=== PATIENT | female | born 1985 | race Caucasian/White ===

== ENCOUNTER → 2018-07-01 | Outpatient (CLI) | payer OTHER | END | disposition home or self-care (01) | LOC: NUC 10:59 | PROVIDERS: ATTEND Surgery Surgical Oncology | DX: R10.9 Unspecified abdominal pain (principal) | CPT/HCPCS: 78227 ==

== ENCOUNTER 2018-07-26 08:25 | Day surgery (SDC) | payer OTHER ==
[2018-07-25 18:00] VITALS: BMI 29.5
[2018-07-26] VITALS (12 sets, daily range): BP systolic 113–156; BP diastolic 63–93; PULSE 66–88; RESP 16–29; Ht 152.4 cm; Wt 83.2 kg
[~2018-07-26] VITALS: Ht 152.4 cm; Wt 83.2 kg
[~2018-07-26 08:25] MED LIST: CEFAZOLIN 2 GM/50 ML (PMX) 50 ML IVPB SCH; SOD CHLORIDE 0.9% 1,000 ML IV ONE
[2018-07-26] MEDS ORDERED: SOD CHLORIDE 0.9% 1,000 ML IV SCH (10:30)
--- NOTE | 2018-07-26 10:48 | PREAC ---
Date/Time of Note Date/Time of Note DATE: 07/26/18 TIME: 10:47 Anesthesia Eval and Record Evaluation Time Pre-Procedure Interview DATE: 07/26/18 TIME: 10:47 Age 33 Sex female NPO: 8 hrs Preoperative diagnosis cholelithiasis Planned procedure lap mane Past Medical History Past Medical History: Includes GI: Obesity Surgery & Anesthesia Issues No known issue Meds Anticoagulation: No Beta Rubia within 24 hr: No Reason Beta Rubia not given: Pt. not on B-Rubia No Active Prescriptions or Reported Meds Current Medications Cefazolin Sodium/ Dextrose 50 ml @ 100 mls/hr PRE-OP IVPB ; Start 07/26/18 at 06:00; Stop 07/26/18 at 15:00 Sodium Chloride 1,000 ml @ 75 mls/hr [id number] ONCE IV Last administered on 07/26/18at 10:19; Admin Dose 75 MLS/HR; Start 07/26/18 at 06:00; Stop 07/26/18 at 19:19 Meds reviewed: Yes Allergies Coded Allergies: No Known Allergy (Unverified , 07/26/18) Allergies Reviewed: Yes Labs/Studies Labs Reviewed: Reviewed by anesthesiologist Result Diagram: 07/26/18 1005 Laboratory Tests 07/26/18 10:05 test: Negative Studies: ECG (n/a), CXR (n/a) Pre-procedure Exam Last vitals Vital Signs Date Temp Pulse Resp B/P (MAP) Pulse Ox O2 O2 Flow FiO2 Time Delivery Rate 07/26/18 98.4 80 16 126/81 96 Room Air 10:01 (96) Airway: Adequate mouth opening Mallampati: Mallampati I Teeth: Normal Lung: Normal Heart: Normal ASA Physical Status ASA physical status: 1 Emergency: None Planned Anesthetic General/MAC: ETT Nerve block: TAP (bilateral) Planned Pain Management Single shot nerve block, Parenteral pain med Pre-operative Attestations Prior to commencing anesthesia and surgery, the patient was re-evaluated, there was verification of: *The patient's identity *The results of appropriate recent lab work and preoperative vital signs *The above evaluation not changing prior to induction *Anesthetic plan, risk benefits, alternative and complications discussed with patient/family; questions answered; patient/family understands, accepts and wishes to proceed. EARNESTINE MATHEW MD Jul 26, 2018 10:48
[2018-07-26] MEDS ORDERED: ROPIVACAINE 0.5 % 30 ML VIAL ONE (10:57)
[2018-07-26] MEDS ORDERED: OXYCODONE/ACETAMINOPHEN (5/325) TAB PO PRN (11:00)
[2018-07-26] MEDS ORDERED: DIPHENHYDRAMINE 50 MG INJ IV PRN (11:00)
[2018-07-26] MEDS ORDERED: KETOROLAC 30 MG INJ IV PRN (11:00)
[2018-07-26] MEDS ORDERED: ONDANSETRON 4 MG INJ IV PRN (11:00)
[2018-07-26] MEDS ORDERED: FENTAnyl 50 MCG/ML VIAL IV PRN ×3 (11:00)
[2018-07-26] MEDS ORDERED: MEPERIDINE 25 MG INJ IV PRN (11:00)
[2018-07-26] MEDS ORDERED: HYDROmorphONE 1 MG/5 ML IV SYRINGE IV PRN ×3 (11:00)
[2018-07-26] MEDS ORDERED: KETOROLAC 30 MG INJ ONE (11:16)
[2018-07-26] MEDS ORDERED: PROPOFOL 20 ML ONE (11:16)
[2018-07-26] MEDS ORDERED: GLYCOPYRROLATE 0.4 MG INJ ONE (11:16)
[2018-07-26] MEDS ORDERED: METOCLOPRAMIDE 10 MG INJ ONE (11:16)
[2018-07-26] MEDS ORDERED: ROCURONIUM 50 MG INJ ONE (11:16)
[2018-07-26] MEDS ORDERED: CEFAZOLIN 1 GM INJ ONE (11:16)
[2018-07-26] MEDS ORDERED: NEOSTIGMINE 3 MG/3 ML SYRINGE ONE (11:16)
[2018-07-26] MEDS ORDERED: ONDANSETRON 4 MG INJ ONE (11:16)
--- NOTE | 2018-07-26 11:57 | OPR ---
Date/Time of Note Date/Time of Note DATE: 07/26/18 TIME: 11:51 Operative Report Procedure Date: Jul 26, 2018 Preoperative Diagnosis symptomatic gallstones Postoperative Diagnosis same Operation/Procedure Performed laparoscopic cholecystectomy Surgeon see signature line Learning And Development Administrator none Anesthesia Type: general Estimated Blood Loss: 0 - 10 ml's Transfusion none Specimen gallbladder Grafts/Implants none Complications none Pt Condition Post Procedure: stable Indications This is a 33-year-old female with symptomatic gallstones. She required surgical excision. Risks alternatives benefits and percent were discussed the patient. Patient expressed understanding and consents to the operation. Procedure Description Patient is here to the OR and prepped and draped in usual sterile fashion. Surgical time was performed. IV antibiotics given. Infraumbilical transverse incision was made with a 15 blade. Dissection with cautery skin onto the fascia. The fascia was grasped with Amol's and divided with curved Webb scissors. 0 Vicryl use this was placed into the fascia. Hopper trocar was introduced. Pneumoperitoneum is established. Midepigastric 12 mm optical trochars placed under direct position. Right upper quadrant upper flank 5 mm optical trochars were placed under direct position. Upon initial inspection there are some adhesions to the gallbladder. Adhesions were taken down bluntly. The gallbladder is grasped the fundus and retracted lateral cephalad direction. [place] graspers were used to dissect out the cystic duct and cystic artery. The critical view was established. The cystic duct is divided with 3 clips proximal to distal divisions performed laparoscopic scissors. Cystic artery was divided to close proximal clips on the divisions performed laparoscopic scis sors. The gallbladder was taken of the gallbladder bed. Good hemostasis established in the gallbladder bed. The gallbladder is retrieved Endo Catch bag. Minimal suction irrigation was used. All ports removed under direct position. Overdiuresis tied down. Skin is closed and skin dale. A tap block was provided with anesthesia. Dry dressings were applied. Richard RODRIGUEZ Jul 26, 2018 11:57
[2018-07-26] MEDS ORDERED: HYDROCODONE/APAP (5/325) TAB PO ONE (12:00)
[2018-07-26] MEDS: OXYCODONE/ACETAMINOPHEN (5/325) TAB PO PRN ×2 (12:19→13:13)
== END 2018-07-26 13:35 | disposition home or self-care (01) ==
LOC: SDS 08:25
PROVIDERS: ATTEND Surgery
DX: K80.80 Other cholelithiasis without obstruction (principal)
CPT/HCPCS: 47562; 80048; 85025; 85610; 85730; J0690; J1170; J1885; J2175; J2405; J2710; J2765; J2795; Z7610